=== PATIENT | female | born 1965 | race Caucasian/White ===

== ENCOUNTER → 2016-07-01 | Day surgery (SDC) | payer BC ==
--- NOTE | 2016-07-02 15:12 | PATH ---
Cytology Non-Gynecological Report Patient Name: PING SOLOMON [facility]. Rec. #: [id number] /Age/Gender: 1965 (Age: 50) / F Account: [id number] Location: RADIOLOGY Taken: 07/01/2016 Received: 07/01/2016 Reported: 07/02/2016 Physicians: Nika Miranda M.D. Specimen(s) Received LEFT THYROID FNA Clinical History Left thyroid nodule, 1.3 x 0.72 x 0.76 cm Final Diagnosis THYROID GLAND, LEFT LOBE, US GUIDED FINE NEEDLE ASPIRATION BIOPSY: SATISFACTORY FOR EVALUATION. NO MALIGNANT CELLS IDENTIFIED. SCATTERED CLUSTERS OF BLAND APPEARING FOLLICULAR EPITHELIAL CELLS AND COLLOID, SUGGESTIVE OF NODULAR GOITER (BENIGN FOLLICULAR NODULE, BETHESDA CATEGORY II, BENIGN), SEE COMMENT. Comment: The smears show scattered clusters of bland appearing follicular epithelial cells with some cells demonstrating Hurthle cell (oncocytic) change. Lymphocytes are focally present raising the possibility of background lymphocytic thyroiditis. Colloid is present. Electronically Signed Myles Velez M.D. Gross Description Received are four air dried smears, two smears in 95% alcohol, and 20 cc of blood tinged fluid in formalin. Four diff-quik stained slides, two Pap stained slides and one cell block are made.
== END | disposition home or self-care (01) ==
LOC: JRADIR 08:45
PROVIDERS: ATTEND Internal Medicine Endocrinology, Diabetes & Metabolism
PROC: 0G9G3ZX Drainage of Left Thyroid Gland Lobe, Percutaneous Approach, Diagnostic (ICD-10-PCS; principal; 2016-07-01)
PROC: BG44ZZZ Ultrasonography of Thyroid Gland (ICD-10-PCS; 2016-07-01)
DX: E04.1 Nontoxic single thyroid nodule (principal)
CPT/HCPCS: 76942; 88173; 88305-TC

== ENCOUNTER 2023-12-21 07:41 | Day surgery (SDC) | payer BC ==
[2023-12-19 16:41] VITALS: BMI 25.3
[2023-12-21 09:27] VITALS: TEMP 97
[2023-12-21 09:30] VITALS: RESP 16
[2023-12-21 09:31] VITALS: BP 118/68; PULSE 82
== END 2023-12-21 10:08 | disposition home or self-care (01) ==
LOC: FASU-ENDO 07:41
PROVIDERS: ATTEND Internal Medicine Gastroenterology
PROC: 0DJD8ZZ Inspection of Lower Intestinal Tract, Via Natural or Artificial Opening Endoscopic (ICD-10-PCS; principal; 2023-12-21 09:00)
DX: Z12.11 Encounter for screening for malignant neoplasm of colon (principal)